=== PATIENT | female | born 1960 | race Asian ===

== ENCOUNTER 2018-05-15 19:26 | Emergency (ER) | payer SELFPAY ==
[~2018-05-15] VITALS: Ht 157.5 cm; Wt 63.6 kg
[2018-05-15] MEDS ORDERED: IBUP-2070 PO (19:36)
[2018-05-15] MEDS ORDERED: AMLO-511 PO (19:36)
[2018-05-15] MEDS ORDERED: ONDANSETRON HCL 4 MG TABLET PO ONE (21:15)
[2018-05-15 22:56] VITALS: BP 114/78
== END 2018-05-15 23:15 | disposition home or self-care (01) ==
LOC: EMS 19:30
DX: S13.4XXA Sprain of ligaments of cervical spine, initial encounter (principal); R11.2 Nausea with vomiting, unspecified; I10 Essential (primary) hypertension; Z88.8 Allergy status to other drugs, medicaments and biological substances; Z79.899 Other long term (current) drug therapy; V49.9XXA Car occupant (driver) (passenger) injured in unspecified traffic accident, initial encounter; Y93.89 Activity, other specified; Y92.488 Other paved roadways as the place of occurrence of the external cause; Y99.8 Other external cause status
CPT/HCPCS: 70450; 72125; 99284; Q0162